=== PATIENT | male | born 1955 ===

== ENCOUNTER → 2021-12-14 10:20 | Outpatient (CLI) | payer MEDICARE, SELFPAY ==
[2021-12-14 18:42] LABS: Add Manual Diff / Slide Review NO; Basophils Absolute Auto 0 /uL (0-100); Eosinophils Absolute Auto 300 /uL (0-450); Eosinophils Percent Auto 6.7 % (2-4); Hematocrit 41.3 % (41-53); Hemoglobin 14.3 g/dL (13.5-17.5); Lymphocytes Absolute Auto 1000 /uL (1100-4500); Lymphocytes Percent Auto 25.2 % (25-40); Mean Corpuscular HGB Conc 34.7 % (30-36); Mean Corpuscular Hemoglobin 30.3 PG (26-34); Mean Corpuscular Volume 87.4 fL (80-100); Monocytes Absolute Auto 400 /uL (0-900); Monocytes Percent Auto 9.3 % (3-14); Neutrophils Absolute Auto 2300 /uL (1500-7000); Neutrophils Percent Auto 57.8 % (50-75); Platelet Count 151 X10^3/uL (150-400); Red Blood Cell Count 4.73 X10^6/uL (4.5-5.9); Red Cell Distribution Width 13.3 % (11.6-14.8); White Blood Cell Count 4.1 X10^3/uL (4.5-11.0)
[2021-12-14 19:18] LABS: Alanine Aminotransferase 37 IU/L (<50); Albumin 4.6 g/dL (3.5-5.0); Albumin Globulin Ratio 1.6 (1.0-2.8); Alkaline Phosphatase 56 U/L (38-126); Aspartate Aminotransferase 36 IU/L (17-59); BUN Creatinine Ratio 16.3 (6-22); Bilirubin Total 0.7 mg/dL (0.2-1.3); Blood Urea Nitrogen 14 mg/dL (9-20); Calcium 9.2 mg/dL (8.4-10.2); Carbon Dioxide 27 mmol/L (22-32); Chloride 106 mmol/L (98-107); Cholesterol 230 mg/dL (140-199); Estimated Glomerular Filt Rate > 60 mL/min (>60); Globulin 2.9 g/dL (1.7-4.1); Glucose 103 mg/dL (80-110); HDL Cholesterol 68 mg/dL (40-60); HEMOLYSIS < 15 (0-50); LDL Cholesterol Calculated 138 mg/dL (<100); Potassium 4.4 mmol/L (3.4-5.1); Sodium 138 mmol/L (137-145); Total Protein 7.5 g/dL (6.3-8.2); Triglycerides 118 mg/dL (35-150)
[2021-12-14 19:26] LABS: Hemoglobin A1C% w Est Avg Glu 5.7 % (4.0-6.0)
[2021-12-14 19:31] LABS: TSH w/ Reflex to FT4 1.03 uIU/mL (0.47-4.68)
[2021-12-14 19:48] LABS: Prostate Specific Antigen 1.55 ng/mL (0.10-4.00)
== END ==
PROVIDERS: PCP Family Medicine; Visit Provider Physician Assistant
DX: E78.5 Hyperlipidemia, unspecified (principal); I10 Essential (primary) hypertension
CPT/HCPCS: 80053; 80061; 83036; 84153; 84443; 85025

== ENCOUNTER → 2022-09-30 09:17 | Outpatient (CLI) | payer OTHER, SELFPAY ==
--- NOTE | 2022-09-30 09:21 | DI.MRI.S_ITS ---
PROCEDURE: MR LUMBAR SPINE WO CON INDICATIONS: Wedge compression fracture of second lumbar verteb TECHNIQUE: Noncontrast sagittal T1 spin echo and T2 fast echo, sagittal STIR, and T2 fast spin echo through the lumbar spine. In cases with scoliosis, additional coronal T2 fast spin echo may be performed. COMPARISON: [facility], CR, XR THORACOLUMBAR SPINE 2 VIEWS, 03/02/2022, 16:36. FINDINGS: Image quality: Good Alignment: No spondylolisthesis. Marrow: Height loss of the T12 vertebral body, approximately 50%. Milder height loss also seen at the L2 vertebral body. Schmorl's nodes and mild Modic changes are present. Multilevel disc desiccation and height loss also seen. Cord: Conus terminates in normal position, with some clumping of the cauda equina nerve roots in the lumbar spine region. Soft tissues: Left renal suspected cyst. No abdominal aortic aneurysm in the field of view. No definite paravertebral abscess or hematoma. Specific levels: T12-L1: Mild right foraminal protrusion. Facet arthropathy. Mild central narrowing, particularly involving the right subarticular recess. Moderate right and plcj-go-ruoaqesr left neural foraminal narrowing. L1-L2: Diffuse disc bulge and tlgq-sc-wsfpqnzz facet arthropathy. Uroy-bz-ywfqfjhx central narrowing affecting both subarticular recesses. Moderate to severe right and moderate left neural foraminal narrowing. L2-L3: Diffuse disc bulge with a superimposed left central and paracentral protrusion. Zmgy-wy-gvicnqde facet arthropathy. Moderate central narrowing affecting the left greater than right subarticular recesses. Mild to moderate right and moderate left neural foraminal narrowing. L3-L4: Left paracentral disc protrusion/displaced disc fragment (2/). Moderate facet arthropathy. Mild to moderate central narrowing, with more significant displacement of the traversing nerve root in the left subarticular recess. Dzsr-qa-xsnklipr right and moderate to severe left neural foraminal narrowing. L4-L5: Diffuse disc bulge with brfj-ov-ulyxoyhc central protrusion. Moderate facet arthropathy. Qdkp-qd-fxwggrwx central narrowing with some displacement of the right greater than left subarticular recesses. Moderate right and moderate to severe left neural foraminal narrowing. L5-S1: Moderate to severe facet arthropathy. Diffuse disc bulge. Mild central narrowing. Moderate to severe bilateral neural foraminal narrowing. IMPRESSION: Advanced spondylotic changes as described above with a combination of disc disease and facet arthropathy. Please note the possible displaced disc fragment at the L3-L4 level, impinging on the traversing L4 nerve root. Height loss of multiple vertebral bodies, most notably T12 and L2, without acute edema to suggest recent fracture. Dictated by: Jovi Hampton M.D. on 10/01/2022 at 10:18 Approved by: Jovi Hampton M.D. on 10/01/2022 at 10:24
== END ==
PROVIDERS: PCP Physician Assistant; Referring Provider Preventive Medicine Occupational Medicine; Visit Provider Preventive Medicine Occupational Medicine
DX: S32.020D Wedge compression fracture of second lumbar vertebra, subsequent encounter for fracture with routine healing (principal); M47.816 Spondylosis without myelopathy or radiculopathy, lumbar region; M47.817 Spondylosis without myelopathy or radiculopathy, lumbosacral region; M51.36 Other intervertebral disc degeneration, lumbar region; M51.37 Other intervertebral disc degeneration, lumbosacral region
CPT/HCPCS: 72148